=== PATIENT | male | born 1985 | race Caucasian/White ===

== ENCOUNTER 2017-08-20 14:15 | Inpatient (IN) ==
[2017-08-20 15:46] LABS: Basophils % 0.3 % (0.0-0.8); Eosinophils # 0.1 10*3/uL (0.0-0.87); Eosinophils % 0.5 % (0.00-10.9); Hematocrit 44.2 VOL% (42.0-52.0); Hemoglobin 14.6 GM/DL (14.0-18.0); Immature Granulocytes % 0.7 %; Immature Granulocytes Absolute 0.07 #; Lymphocytes # 1.9 10*3/uL (1.4-4.0); Lymphocytes % 18.3 % (21.2-54.2); Mean Corpuscular Hemoglobin 30 PG (27-34); Mean Corpuscular Volume 90.4 FL (87-102); Mean Platelet Volume 10.9 FL (9.6-12.0); Monocytes # 0.7 10*3/uL (0.11-0.8); Monocytes % 6.3 % (1.7-12.7); Neutrophils # 7.9 10*3/uL (1.4-7.4); Neutrophils % 73.9 % (38.7-73.9); Platelet Count 227 T/CUMM (130-400); Red Blood Count 4.89 MC/CUMM (3.8-5.5); White Blood Count 10.6 T/CUMM (4-12)
[2017-08-20] MEDS ORDERED: ALBUTEROL/IPRATROPIUM 3 ML NEB RESP TX STA (16:00)
[2017-08-20 16:21] LABS: Albumin 2.8 G/DL (3.4-5.0); Bilirubin,Total 0.4 MG/DL (0.2-1.0); Calcium 8.2 MG/DL (8.5-10.1); Osmolality,Calculated 284.2 MOS/KG (273-304); Potassium 4.1 MMOL/L (3.5-5.1); Total Protein 7.5 G/DL (6.4-8.3)
[2017-08-20 16:22] LABS: Troponin I Only 0.522 NG/ML (0.00-0.045)
[2017-08-20] MEDS ORDERED: NITROGLYCERIN SL 0.4 MG TABLET SL STA (17:13)
[2017-08-20] MEDS ORDERED: ASPIRIN 325 MG TABLET PO STA (17:13)
[2017-08-20] MEDS ORDERED: ENOXAPARIN 30 MG/0.3 ML SYRINGE SUBCUT STA (17:14)
[2017-08-20] MEDS ORDERED: INSULIN REGULAR 100 UNIT/ML SUBCUT STA (17:16)
[2017-08-20] MEDS ORDERED: POTASSIUM CHLORIDE 20 MEQ TABLET PO PRN ×2 (18:08)
[2017-08-20] MEDS ORDERED: GLUCAGON 1 MG VIAL IM PRN ×2 (18:08→18:12)
[2017-08-20] MEDS ORDERED: MORPHINE 4 MG/1 ML VIAL IV PRN (18:08)
[2017-08-20] MEDS ORDERED: ONDANSETRON 4 MG/2 ML VIAL IV PRN (18:08)
[2017-08-20] MEDS ORDERED: MAGNESIUM SULF RIDER 4 GM in PREMIX 1 EACH IV PRN (18:08)
[2017-08-20] MEDS ORDERED: DEXTROSE 50% 25 GM/50 ML VIAL IV PRN ×2 (18:08→18:12)
[2017-08-20] MEDS ORDERED: MAGNESIUM SULF RIDER 2 GM in PREMIX 1 EACH IV PRN (18:08)
[2017-08-20] MEDS ORDERED: ENOXAPARIN 120 MG/0.8 ML SYRINGE SUBCUT ONE (18:09)
[2017-08-20] MEDS ORDERED: DOCUSATE SODIUM 100 MG CAPSULE PO PRN (18:12)
[2017-08-20] MEDS ORDERED: ALBUTEROL/IPRATROPIUM 3 ML NEB RESP TX PRN (18:13)
[2017-08-20] MEDS: ALBUTEROL/IPRATROPIUM 3 ML NEB RESP TX SCH (18:59)
[2017-08-20] MEDS ORDERED: CARVEDILOL 3.125 MG TABLET PO SCH (21:00)
[2017-08-20] MEDS ORDERED: ROSUVASTATIN 20 MG TABLET PO SCH (21:00)
[2017-08-20] MEDS: ACETAMINOPHEN 325 MG TABLET PO PRN (21:44)
[2017-08-20] MEDS: SODIUM CHLORIDE 0.45% 1,000 ML IV SCH (22:12)
[2017-08-20] MEDS: INSULIN REGULAR 100 UNIT/ML SUBCUT SCH (22:12)
[2017-08-20] MEDS: NITROGLYCERIN 2% OINT 1 INCH/GM PACK TOP SCH (22:36)
[2017-08-21] MEDS: ALBUTEROL/IPRATROPIUM 3 ML NEB RESP TX SCH ×4 (00:18→19:08)
[2017-08-21 01:18] LABS: Basophils % 0.3 % (0.0-0.8); Eosinophils # 0.2 10*3/uL (0.0-0.87); Eosinophils % 2.4 % (0.00-10.9); Hematocrit 42.8 VOL% (42.0-52.0); Hemoglobin 14.5 GM/DL (14.0-18.0); Immature Granulocytes % 0.8 %; Immature Granulocytes Absolute 0.08 #; Lymphocytes # 2.6 10*3/uL (1.4-4.0); Lymphocytes % 26.8 % (21.2-54.2); Mean Corpuscular HGB Conc 33.9 GM/DL (32-36); Mean Corpuscular Hemoglobin 31 PG (27-34); Mean Corpuscular Volume 91.3 FL (87-102); Mean Platelet Volume 11.1 FL (9.6-12.0); Monocytes # 0.6 10*3/uL (0.11-0.8); Monocytes % 6.4 % (1.7-12.7); Neutrophils # 6.2 10*3/uL (1.4-7.4); Neutrophils % 63.3 % (38.7-73.9); Platelet Count 239 T/CUMM (130-400); Red Blood Count 4.69 MC/CUMM (3.8-5.5); Red Cell Distribution Width 15.1 % (9.3-17.3); White Blood Count 9.8 T/CUMM (4-12)
[2017-08-21 01:41] LABS: Osmolality,Calculated 291.8 MOS/KG (273-304); Potassium 4.2 MMOL/L (3.5-5.1)
[2017-08-21 01:45] LABS: Risk Ratio 14.4; Thyroid Stimulating Hormone 1.47 uIU/ml (0.358-3.74); VLDL CHOLESTEROL 463.4 MG/DL
[2017-08-21] MEDS: NITROGLYCERIN 2% OINT 1 INCH/GM PACK TOP SCH ×4 (04:27→21:38)
[2017-08-21] MEDS: SODIUM CHLORIDE 0.45% 1,000 ML IV SCH (05:08)
[2017-08-21] MEDS: ENOXAPARIN 150 MG/ML SYRINGE SUBCUT SCH ×2 (05:29→17:27)
[2017-08-21] MEDS: metFORMIN 500 MG TABLET PO SCH ×2 (09:01→16:37)
[2017-08-21] MEDS: INSULIN REGULAR 100 UNIT/ML SUBCUT SCH ×4 (09:01→21:38)
[2017-08-21] MEDS ORDERED: FUROSEMIDE 40 MG/4 ML VIAL ONE (09:44)
[2017-08-21] MEDS: AZITHROMYCIN 250 MG TABLET PO SCH (09:52)
[2017-08-21] MEDS: ASPIRIN EC 325 MG TABLET PO SCH (09:52)
[2017-08-21] MEDS: LISINOPRIL 5 MG TABLET PO SCH (09:52)
[2017-08-21] MEDS: PANTOPRAZOLE 40 MG TABLET PO SCH (09:52)
[2017-08-21] MEDS: CARVEDILOL 12.5 MG TABLET PO SCH ×2 (09:52→21:39)
[2017-08-21 13:39] LABS: Barbiturates Screen,Urine Negative (Negative); Benzodiazepines Screen,Urine Negative (Negative); Cannabinoid Screen,Urine Negative (Negative); Opiate Screen,Urine Negative (Negative); Phencyclidine Screen,Urine Negative (Negative)
[2017-08-21] MEDS: ACETAMINOPHEN 325 MG TABLET PO PRN (16:40)
[2017-08-21] MEDS ORDERED: CLOPIDOGREL 300 MG TABLET PO ONE (16:43)
[2017-08-21] MEDS: CLOPIDOGREL 75 MG TABLET PO SCH (17:26)
[2017-08-21] MEDS: BENZONATATE 100 MG CAPSULE PO PRN ×2 (17:45→21:39)
[2017-08-21] MEDS: FUROSEMIDE 40 MG/4 ML VIAL IV SCH (21:38)
[2017-08-21] MEDS: ROSUVASTATIN 20 MG TABLET PO SCH (21:39)
[2017-08-21] MEDS ORDERED: NITROGLYCERIN 2% OINT 1 INCH/GM PACK TOP SCH (22:30)
[2017-08-22] MEDS: ALBUTEROL/IPRATROPIUM 3 ML NEB RESP TX SCH ×4 (00:02→20:44)
[2017-08-22] MEDS: NITROGLYCERIN 2% OINT 1 INCH/GM PACK TOP SCH ×3 (04:27→16:50)
[2017-08-22] MEDS: ENOXAPARIN 150 MG/ML SYRINGE SUBCUT SCH (06:28)
[2017-08-22] MEDS ORDERED: FUROSEMIDE 40 MG/4 ML VIAL IV SCH (09:00)
[2017-08-22 09:43] LABS: Calcium 6.8 MG/DL (8.5-10.1); Osmolality,Calculated 275.7 MOS/KG (273-304)
[2017-08-22] MEDS: CARVEDILOL 12.5 MG TABLET PO SCH ×2 (09:58→21:50)
[2017-08-22] MEDS: CLOPIDOGREL 75 MG TABLET PO SCH (09:58)
[2017-08-22] MEDS: OMEGA 3 ACID ETHYL ESTERS 1 GM CAPSULE PO SCH (09:58)
[2017-08-22] MEDS: AZITHROMYCIN 250 MG TABLET PO SCH (09:58)
[2017-08-22] MEDS: metFORMIN 500 MG TABLET PO SCH ×2 (09:58→17:42)
[2017-08-22] MEDS: PANTOPRAZOLE 40 MG TABLET PO SCH (09:58)
[2017-08-22] MEDS: INSULIN REGULAR 100 UNIT/ML SUBCUT SCH ×4 (09:59→21:50)
[2017-08-22] MEDS: INSULIN GLARGINE 100 UNIT/ML SUBCUT SCH (09:59)
[2017-08-22] MEDS: LISINOPRIL 5 MG TABLET PO SCH (09:59)
[2017-08-22] MEDS: ASPIRIN EC 325 MG TABLET PO SCH (09:59)
[2017-08-22] MEDS: FUROSEMIDE 40 MG/4 ML VIAL IV SCH ×3 (10:01→20:14)
[2017-08-22] MEDS ORDERED: ADENOSINE 6 MG/2 ML VIAL ONE ×2 (10:57→11:34)
[2017-08-22] MEDS: ROSUVASTATIN 20 MG TABLET PO SCH (21:49)
[2017-08-22] MEDS: hydrALAZINE 10 MG TABLET PO SCH (21:49)
[2017-08-22] MEDS: BENZONATATE 100 MG CAPSULE PO PRN (21:49)
[2017-08-22] MEDS: SERTRALINE 25 MG TABLET PO SCH (21:50)
[2017-08-23] MEDS: ALBUTEROL/IPRATROPIUM 3 ML NEB RESP TX SCH ×4 (00:23→21:26)
[2017-08-23] MEDS: NITROGLYCERIN 2% OINT 1 INCH/GM PACK TOP SCH ×3 (01:33→10:11)
[2017-08-23 06:59] LABS: Calcium 6.3 MG/DL (8.5-10.1); Potassium 4.1 MMOL/L (3.5-5.1)
[2017-08-23] MEDS: ASPIRIN EC 325 MG TABLET PO SCH (10:11)
[2017-08-23] MEDS: AZITHROMYCIN 250 MG TABLET PO SCH (10:11)
[2017-08-23] MEDS: INSULIN GLARGINE 100 UNIT/ML SUBCUT SCH (10:11)
[2017-08-23] MEDS: INSULIN REGULAR 100 UNIT/ML SUBCUT SCH ×4 (10:11→20:28)
[2017-08-23] MEDS: OMEGA 3 ACID ETHYL ESTERS 1 GM CAPSULE PO SCH (10:12)
[2017-08-23] MEDS: metFORMIN 500 MG TABLET PO SCH ×2 (10:12→16:46)
[2017-08-23] MEDS: hydrALAZINE 10 MG TABLET PO SCH ×3 (10:12→20:29)
[2017-08-23] MEDS: CARVEDILOL 12.5 MG TABLET PO SCH (10:13)
[2017-08-23] MEDS: PANTOPRAZOLE 40 MG TABLET PO SCH (10:13)
[2017-08-23] MEDS: CLOPIDOGREL 75 MG TABLET PO SCH (10:13)
[2017-08-23] MEDS: LISINOPRIL 5 MG TABLET PO SCH (10:13)
[2017-08-23] MEDS: FUROSEMIDE 40 MG/4 ML VIAL IV SCH ×2 (10:13→20:28)
[2017-08-23] MEDS: ENOXAPARIN 40 MG/0.4 ML SYRINGE SUBCUT SCH (10:13)
[2017-08-23] MEDS: ISOSORBIDE MONONITRATE 30 MG TABLET PO SCH (10:14)
[2017-08-23] MEDS: ACETAMINOPHEN 325 MG TABLET PO PRN (10:18)
[2017-08-23] MEDS ORDERED: INSULIN GLARGINE 100 UNIT/ML SUBCUT SCH (11:40)
[2017-08-23] MEDS: BENZONATATE 100 MG CAPSULE PO PRN (20:29)
[2017-08-23] MEDS: SERTRALINE 25 MG TABLET PO SCH (20:29)
[2017-08-23] MEDS: ROSUVASTATIN 20 MG TABLET PO SCH (20:29)
[2017-08-23] MEDS: CARVEDILOL 25 MG TABLET PO SCH (20:29)
[2017-08-24] MEDS: ALBUTEROL/IPRATROPIUM 3 ML NEB RESP TX SCH ×4 (02:17→19:44)
[2017-08-24 05:30] LABS: Basophils % 0.4 % (0.0-0.8); Eosinophils # 0.4 10*3/uL (0.0-0.87); Hematocrit 42.7 VOL% (42.0-52.0); Hemoglobin 15.1 GM/DL (14.0-18.0); Immature Granulocytes % 0.8 %; Immature Granulocytes Absolute 0.07 #; Lymphocytes # 2.1 10*3/uL (1.4-4.0); Lymphocytes % 24.8 % (21.2-54.2); Mean Corpuscular HGB Conc 35.4 GM/DL (32-36); Mean Corpuscular Hemoglobin 31 PG (27-34); Monocytes # 0.6 10*3/uL (0.11-0.8); Monocytes % 6.8 % (1.7-12.7); Neutrophils # 5.2 10*3/uL (1.4-7.4); Neutrophils % 62.2 % (38.7-73.9); Platelet Count 270 T/CUMM (130-400); Red Blood Count 4.85 MC/CUMM (3.8-5.5); Red Cell Distribution Width 14.5 % (9.3-17.3); White Blood Count 8.4 T/CUMM (4-12)
[2017-08-24 06:43] LABS: Calcium 7.4 MG/DL (8.5-10.1); Osmolality,Calculated 283.1 MOS/KG (273-304); Potassium 4.3 MMOL/L (3.5-5.1)
[2017-08-24] MEDS: FUROSEMIDE 40 MG/4 ML VIAL IV SCH ×2 (10:40→20:44)
[2017-08-24] MEDS: metFORMIN 500 MG TABLET PO SCH ×2 (10:40→17:45)
[2017-08-24] MEDS: OMEGA 3 ACID ETHYL ESTERS 1 GM CAPSULE PO SCH (10:41)
[2017-08-24] MEDS: CLOPIDOGREL 75 MG TABLET PO SCH (10:41)
[2017-08-24] MEDS: hydrALAZINE 10 MG TABLET PO SCH ×2 (10:41→15:09)
[2017-08-24] MEDS: ASPIRIN EC 325 MG TABLET PO SCH (10:41)
[2017-08-24] MEDS: CARVEDILOL 25 MG TABLET PO SCH ×2 (10:42→20:40)
[2017-08-24] MEDS: LISINOPRIL 5 MG TABLET PO SCH (10:42)
[2017-08-24] MEDS: ENOXAPARIN 40 MG/0.4 ML SYRINGE SUBCUT SCH (10:42)
[2017-08-24] MEDS: INSULIN REGULAR 100 UNIT/ML SUBCUT SCH ×4 (10:42→21:50)
[2017-08-24] MEDS: AZITHROMYCIN 250 MG TABLET PO SCH (10:42)
[2017-08-24] MEDS: PANTOPRAZOLE 40 MG TABLET PO SCH (10:42)
[2017-08-24] MEDS: ISOSORBIDE MONONITRATE 30 MG TABLET PO SCH (10:43)
[2017-08-24] MEDS ORDERED: INSULIN GLARGINE 100 UNIT/ML SUBCUT SCH (12:13)
[2017-08-24] MEDS ORDERED: MAGNESIUM OXIDE 400 MG TABLET PO ONE (12:16)
[2017-08-24] MEDS: INSULIN LISPRO 100 UNIT/ML SUBCUT SCH (17:44)
[2017-08-24] MEDS: ROSUVASTATIN 20 MG TABLET PO SCH (20:40)
[2017-08-24] MEDS: SERTRALINE 25 MG TABLET PO SCH (20:41)
[2017-08-25] MEDS: ALBUTEROL/IPRATROPIUM 3 ML NEB RESP TX SCH ×3 (00:32→15:23)
[2017-08-25 06:02] LABS: Calcium 7.7 MG/DL (8.5-10.1); Osmolality,Calculated 274.7 MOS/KG (273-304); Potassium 4.1 MMOL/L (3.5-5.1)
[2017-08-25 06:06] LABS: Basophils % 0.3 % (0.0-0.8); Eosinophils # 0.5 10*3/uL (0.0-0.87); Hematocrit 43.9 VOL% (42.0-52.0); Hemoglobin 14.3 GM/DL (14.0-18.0); Immature Granulocytes % 0.8 %; Immature Granulocytes Absolute 0.06 #; Lymphocytes % 25.4 % (21.2-54.2); Mean Corpuscular HGB Conc 32.6 GM/DL (32-36); Mean Corpuscular Hemoglobin 31 PG (27-34); Mean Platelet Volume 10.4 FL (9.6-12.0); Monocytes # 0.5 10*3/uL (0.11-0.8); Monocytes % 6.9 % (1.7-12.7); Neutrophils # 4.8 10*3/uL (1.4-7.4); Neutrophils % 60.6 % (38.7-73.9); Platelet Count 247 T/CUMM (130-400); Red Blood Count 4.67 MC/CUMM (3.8-5.5); Red Cell Distribution Width 14.3 % (9.3-17.3); White Blood Count 7.9 T/CUMM (4-12)
[2017-08-25] MEDS: FUROSEMIDE 40 MG/4 ML VIAL IV SCH (08:57)
[2017-08-25] MEDS: INSULIN REGULAR 100 UNIT/ML SUBCUT SCH ×3 (08:57→17:27)
[2017-08-25] MEDS: INSULIN LISPRO 100 UNIT/ML SUBCUT SCH ×3 (08:58→17:28)
[2017-08-25] MEDS: ENOXAPARIN 40 MG/0.4 ML SYRINGE SUBCUT SCH (08:58)
[2017-08-25] MEDS: ASPIRIN EC 325 MG TABLET PO SCH (08:59)
[2017-08-25] MEDS: CARVEDILOL 25 MG TABLET PO SCH (08:59)
[2017-08-25] MEDS: CLOPIDOGREL 75 MG TABLET PO SCH (08:59)
[2017-08-25] MEDS: metFORMIN 500 MG TABLET PO SCH ×2 (08:59→17:28)
[2017-08-25] MEDS: PANTOPRAZOLE 40 MG TABLET PO SCH (08:59)
[2017-08-25] MEDS: LISINOPRIL 5 MG TABLET PO SCH (08:59)
[2017-08-25] MEDS: OMEGA 3 ACID ETHYL ESTERS 1 GM CAPSULE PO SCH (08:59)
[2017-08-25] MEDS: AZITHROMYCIN 250 MG TABLET PO SCH (08:59)
[2017-08-25] MEDS ORDERED: MAGNESIUM SULF RIDER 2 GM in PREMIX 1 EACH IV ONE (12:28)
[2017-08-25] MEDS ORDERED: predniSONE 20 MG TABLET PO SCH (12:30)
[2017-08-25 16:55] VITALS: BP 124/72
== END 2017-08-25 19:29 | disposition home or self-care (01) | DRG 144 ==
LOC: N.ED 14:15 → SUATTDRO 17:26 → N.EDINP 17:26 → N.TELEN 19:15
PROVIDERS: ADMIT Internal Medicine; ATTEND Internal Medicine

== ENCOUNTER 2018-08-02 17:53 | Inpatient (IN) ==
[2018-08-02] MEDS ORDERED: FUROSEMIDE 40 MG/4 ML VIAL IV STA (18:12)
[2018-08-02] MEDS ORDERED: ASPIRIN 325 MG TABLET PO STA (18:12)
[2018-08-02] MEDS ORDERED: DILTIAZEM 50 MG/10 ML VIAL IV STA (18:12)
[2018-08-02 18:58] LABS: Basophils % 0.2 % (0.0-0.8); Eosinophils # 0.4 10*3/uL (0.0-0.87); Hematocrit 46.1 VOL% (42.0-52.0); Hemoglobin 14.2 GM/DL (14.0-18.0); Immature Granulocytes % 0.3 %; Immature Granulocytes Absolute 0.03 #; Lymphocytes % 19.2 % (21.2-54.2); Mean Corpuscular HGB Conc 30.8 GM/DL (32-36); Mean Corpuscular Hemoglobin 28 PG (27-34); Mean Corpuscular Volume 91.5 FL (87-102); Mean Platelet Volume 10.2 FL (9.6-12.0); Monocytes # 0.5 10*3/uL (0.11-0.8); Monocytes % 5.3 % (1.7-12.7); Neutrophils # 7.2 10*3/uL (1.4-7.4); Platelet Count 384 T/CUMM (130-400); Red Blood Count 5.04 MC/CUMM (3.8-5.5); Red Cell Distribution Width 14.4 % (9.3-17.3); White Blood Count 10.2 T/CUMM (4-12)
[2018-08-02 19:06] LABS: INR 0.9; PT Patient Result 10.3 SECS
[2018-08-02 19:11] LABS: Alanine Aminotransferase 35 U/L (16-61); Alkaline Phosphatase 86 U/L (45-117); Aspartate Amino Transferase 17 U/L (0-37); Bilirubin,Total < 0.39 MG/DL (0.2-1.0); Blood Urea Nitrogen 17 MG/DL (7-18); Calcium 7.8 MG/DL (8.5-10.1); Glucose 303 MG/DL (74-106); Osmolality,Calculated 285.8 MOS/KG (273-304); Sodium 137 MMOL/L (136-145); Total Protein 7.5 G/DL (6.4-8.3); Troponin I 0.045 NG/ML (0.00-0.045)
[2018-08-02] MEDS ORDERED: DEXTROSE 50% 25 GM/50 ML SYRINGE IV PRN (20:08)
[2018-08-02] MEDS ORDERED: GLUCAGON 1 MG VIAL IM PRN (20:08)
[2018-08-02] MEDS ORDERED: ACETAMINOPHEN 325 MG TABLET PO PRN (20:08)
[2018-08-02 20:28] LABS: Barbiturates Screen,Urine Negative (Negative); Benzodiazepines Screen,Urine Negative (Negative); Cannabinoid Screen,Urine Negative (Negative); Opiate Screen,Urine Negative (Negative); Phencyclidine Screen,Urine Negative (Negative)
[2018-08-02] MEDS: INSULIN REGULAR 100 UNIT/ML SUBCUT SCH (22:23)
[2018-08-02] MEDS: ENOXAPARIN 40 MG/0.4 ML SYRINGE SUBCUT SCH (22:23)
[2018-08-03 05:22] LABS: Basophils % 0.3 % (0.0-0.8); Eosinophils # 0.4 10*3/uL (0.0-0.87); Eosinophils % 3.5 % (0.00-10.9); Hemoglobin 13.9 GM/DL (14.0-18.0); Immature Granulocytes % 0.5 %; Immature Granulocytes Absolute 0.05 #; Lymphocytes # 2.4 10*3/uL (1.4-4.0); Lymphocytes % 23.4 % (21.2-54.2); Mean Corpuscular HGB Conc 30.9 GM/DL (32-36); Mean Corpuscular Hemoglobin 29 PG (27-34); Mean Corpuscular Volume 92.4 FL (87-102); Mean Platelet Volume 9.9 FL (9.6-12.0); Monocytes # 0.6 10*3/uL (0.11-0.8); Monocytes % 6.3 % (1.7-12.7); Neutrophils # 6.7 10*3/uL (1.4-7.4); Platelet Count 335 T/CUMM (130-400); Red Blood Count 4.87 MC/CUMM (3.8-5.5); White Blood Count 10.1 T/CUMM (4-12)
[2018-08-03 05:33] LABS: Calcium 7.6 MG/DL (8.5-10.1); Osmolality,Calculated 284.7 MOS/KG (273-304); Potassium 3.9 MMOL/L (3.5-5.1)
[2018-08-03] MEDS: INSULIN REGULAR 100 UNIT/ML SUBCUT SCH ×4 (09:00→21:04)
[2018-08-03] MEDS: FUROSEMIDE 40 MG/4 ML VIAL IV SCH ×2 (09:01→16:27)
[2018-08-03] MEDS ORDERED: CAPTOPRIL 6.25 MG TABLET PO SCH (13:43)
[2018-08-03] MEDS ORDERED: SERTRALINE 25 MG TABLET PO ONE (13:44)
[2018-08-03] MEDS: CARVEDILOL 3.125 MG TABLET PO SCH ×2 (15:02→21:03)
[2018-08-03] MEDS: RAMIPRIL 2.5 MG CAPSULE PO SCH (15:02)
[2018-08-03] MEDS: ASPIRIN CHEW 81 MG TABLET PO SCH (15:02)
[2018-08-03] MEDS ORDERED: LORazepam 2 MG/1 ML VIAL IV ONE (15:44)
[2018-08-03] MEDS ORDERED: SERTRALINE 25 MG TABLET PO SCH (21:00)
[2018-08-03] MEDS: ENOXAPARIN 40 MG/0.4 ML SYRINGE SUBCUT SCH (21:03)
[2018-08-03] MEDS: glipiZIDE 10 MG TABLET PO SCH (21:03)
[2018-08-04] MEDS: CARVEDILOL 3.125 MG TABLET PO SCH ×3 (01:49→15:20)
[2018-08-04 05:22] LABS: Basophils % 0.3 % (0.0-0.8); Eosinophils # 0.3 10*3/uL (0.0-0.87); Eosinophils % 3.4 % (0.00-10.9); Hematocrit 45.8 VOL% (42.0-52.0); Hemoglobin 14.2 GM/DL (14.0-18.0); Immature Granulocytes % 0.4 %; Immature Granulocytes Absolute 0.04 #; Lymphocytes # 2.1 10*3/uL (1.4-4.0); Lymphocytes % 21.2 % (21.2-54.2); Mean Corpuscular Hemoglobin 28 PG (27-34); Mean Corpuscular Volume 90.7 FL (87-102); Mean Platelet Volume 9.7 FL (9.6-12.0); Monocytes # 0.7 10*3/uL (0.11-0.8); Monocytes % 7.6 % (1.7-12.7); Neutrophils # 6.5 10*3/uL (1.4-7.4); Neutrophils % 67.1 % (38.7-73.9); Platelet Count 317 T/CUMM (130-400); Red Blood Count 5.05 MC/CUMM (3.8-5.5); Red Cell Distribution Width 13.8 % (9.3-17.3); White Blood Count 9.7 T/CUMM (4-12)
[2018-08-04 05:40] LABS: Calcium 7.7 MG/DL (8.5-10.1); Osmolality,Calculated 282.5 MOS/KG (273-304); Potassium 3.7 MMOL/L (3.5-5.1)
[2018-08-04 08:24] VITALS: BP 112/62
[2018-08-04] MEDS: INSULIN REGULAR 100 UNIT/ML SUBCUT SCH ×3 (08:50→16:58)
[2018-08-04] MEDS ORDERED: metFORMIN 500 MG TABLET PO SCH (09:00)
[2018-08-04] MEDS ORDERED: GLUCAGON 1 MG VIAL IM PRN (13:32)
[2018-08-04] MEDS ORDERED: DEXTROSE 50% 25 GM/50 ML VIAL IV PRN (13:32)
[2018-08-04] MEDS: glipiZIDE 10 MG TABLET PO SCH (15:16)
[2018-08-04] MEDS: RAMIPRIL 2.5 MG CAPSULE PO SCH (15:18)
[2018-08-04] MEDS: ASPIRIN CHEW 81 MG TABLET PO SCH (15:19)
[2018-08-04] MEDS: FUROSEMIDE 40 MG/4 ML VIAL IV SCH (15:19)
[2018-08-04] MEDS ORDERED: POTASSIUM CHLORIDE 20 MEQ TABLET PO SCH (15:30)
[2018-08-04] MEDS ORDERED: FUROSEMIDE 40 MG TABLET PO SCH (16:00)
[2018-08-04] MEDS ORDERED: CARVEDILOL 6.25 MG TABLET PO SCH (21:00)
[2018-08-05] MEDS ORDERED: ASPIRIN EC 81 MG TABLET PO SCH (09:00)
[2018-08-05] MEDS ORDERED: REGADENOSON 0.4 MG/5 ML SYRINGE IV ONE (12:51)
== END 2018-08-04 18:15 | disposition home or self-care (01) | DRG 281 ==
LOC: N.ED 17:53 → N.EDINP 20:08 → SUATTDRO 20:08 → N.TELEN 20:40
PROVIDERS: ADMIT Internal Medicine Geriatric Medicine; ATTEND Emergency Medicine

== ENCOUNTER 2019-01-03 17:15 | Inpatient (IN) ==
[2019-01-03] MEDS ORDERED: ONDANSETRON 4 MG/2 ML VIAL IV STA (17:45)
[2019-01-03] MEDS ORDERED: FUROSEMIDE 100 MG/10 ML VIAL IV STA (17:45)
[2019-01-03] MEDS ORDERED: ALBUTEROL NEB SOLN 5 MG/ML 20 ML/BOTTLE RESP TX SCH (18:00)
[2019-01-03 18:12] LABS: Basophils % 0.3 % (0.0-0.8); Eosinophils # 0.4 10*3/uL (0.0-0.87); Eosinophils % 3.6 % (0.00-10.9); Hematocrit 44.1 VOL% (42.0-52.0); Hemoglobin 13.7 GM/DL (14.0-18.0); Immature Granulocytes % 0.5 %; Immature Granulocytes Absolute 0.05 #; Lymphocytes # 1.5 10*3/uL (1.4-4.0); Mean Corpuscular HGB Conc 31.1 GM/DL (32-36); Monocytes % 6.4 % (1.7-12.7); Neutrophils % 74.2 % (38.7-73.9); Platelet Count 254 T/CUMM (130-400); Red Cell Distribution Width 14.9 % (9.3-17.3); White Blood Count 10.2 T/CUMM (4-12)
[2019-01-03 18:23] LABS: Alanine Aminotransferase 31 U/L (16-61); Alkaline Phosphatase 85 U/L (45-117); Aspartate Amino Transferase 20 U/L (0-37); Blood Urea Nitrogen 12 MG/DL (7-18); Calcium 8.9 MG/DL (8.5-10.1); Glucose 161 MG/DL (74-106); Osmolality,Calculated 283.3 MOS/KG (273-304); Total Protein 7.2 G/DL (6.4-8.3); Troponin I 0.035 NG/ML (0.00-0.045)
[2019-01-03 18:28] LABS: PT Patient Result 10.7 SECS (9.6-12.2); Partial Thromboplastin Time 24.5 SECS (20.8-36.0)
[2019-01-03] MEDS ORDERED: GLUCAGON 1 MG VIAL IM PRN (19:28)
[2019-01-03] MEDS ORDERED: DEXTROSE 50% 25 GM/50 ML VIAL IV PRN (19:28)
[2019-01-03] MEDS ORDERED: ONDANSETRON 4 MG/2 ML VIAL IV PRN (19:28)
[2019-01-03] MEDS ORDERED: DOCUSATE SODIUM 100 MG CAPSULE PO PRN (19:28)
[2019-01-03] MEDS ORDERED: POTASSIUM CHLORIDE 20 MEQ TABLET PO PRN (19:39)
[2019-01-03] MEDS: FUROSEMIDE 40 MG/4 ML VIAL IV SCH ×2 (22:08→22:58)
[2019-01-03] MEDS: ENOXAPARIN 40 MG/0.4 ML SYRINGE SUBCUT SCH ×2 (22:08→22:58)
[2019-01-03] MEDS: INSULIN LISPRO 100 UNIT/ML SUBCUT SCH (22:09)
[2019-01-03 22:58] LABS: Apearance,Urine CLEAR (Clear); Bacteria,Urine Occasional /HPF (Few); Bilirubin,Urine Negative (Negative); Blood, Urine Negative (Negative); Glucose,Urine (UA) Negative (Negative); Hyaline Casts,Urine 28 /LPF (0-3); Ketones,Urine Negative (Negative); Mucus,Urine Occasional /LPF (Occasional); Nitrite,Urine Negative (Negative); Protein,Urine Negative; RBC,Urine 1 /HPF (0-4); Urine Color Straw (Yellow); Urine Specific Gravity 1.006 (1.001-1.035); Urine Urobilinogen < 2.0 EU/DL (0.2-1.0); WBC,Urine <1 /HPF (0-6)
[2019-01-03] MEDS: CARVEDILOL 3.125 MG TABLET PO SCH (22:58)
[2019-01-03] MEDS: LISINOPRIL 10 MG TABLET PO SCH (22:58)
[2019-01-04] MEDS: ACETAMINOPHEN 325 MG TABLET PO PRN ×2 (03:22→12:31)
[2019-01-04 04:42] LABS: Basophils % 0.3 % (0.0-0.8); Eosinophils # 0.4 10*3/uL (0.0-0.87); Eosinophils % 3.1 % (0.00-10.9); Hematocrit 43.9 VOL% (42.0-52.0); Hemoglobin 13.6 GM/DL (14.0-18.0); Immature Granulocytes % 0.4 %; Immature Granulocytes Absolute 0.05 #; Lymphocytes # 1.7 10*3/uL (1.4-4.0); Lymphocytes % 13.4 % (21.2-54.2); Mean Corpuscular Volume 91.1 FL (87-102); Monocytes % 5.9 % (1.7-12.7); Neutrophils % 76.9 % (38.7-73.9); Platelet Count 271 T/CUMM (130-400); Red Blood Count 4.82 MC/CUMM (3.8-5.5); Red Cell Distribution Width 14.9 % (9.3-17.3); White Blood Count 12.7 T/CUMM (4-12)
[2019-01-04 05:07] LABS: Calcium 8.1 MG/DL (8.5-10.1); Osmolality,Calculated 276.8 MOS/KG (273-304)
[2019-01-04] MEDS ORDERED: glipiZIDE 5 MG TABLET PO SCH (07:30)
[2019-01-04] MEDS: INSULIN LISPRO 100 UNIT/ML SUBCUT SCH ×3 (08:06→16:21)
[2019-01-04] MEDS ORDERED: PANTOPRAZOLE 40 MG TABLET PO SCH (09:00)
[2019-01-04] MEDS: CARVEDILOL 3.125 MG TABLET PO SCH ×2 (09:04→16:52)
[2019-01-04] MEDS: LISINOPRIL 10 MG TABLET PO SCH (09:04)
[2019-01-04] MEDS: FUROSEMIDE 40 MG/4 ML VIAL IV SCH ×3 (09:10→16:21)
[2019-01-04] MEDS ORDERED: MAGNESIUM SULF RIDER 2 GM in PREMIX 1 EACH IV ONE (11:32)
[2019-01-04] MEDS ORDERED: ASPIRIN CHEW 81 MG TABLET PO ONE (14:25)
[2019-01-04] MEDS ORDERED: MAGNESIUM CHLORIDE 64 MG TABLET PO SCH (14:30)
[2019-01-04 16:33] VITALS: BP 104/67
[2019-01-05] MEDS ORDERED: ASPIRIN CHEW 81 MG TABLET PO SCH (09:00)
== END 2019-01-04 17:07 | disposition home or self-care (01) | DRG 293 ==
LOC: N.ED 17:15 → N.EDINP 19:28 → N.TELES 20:58
PROVIDERS: ADMIT Internal Medicine; ATTEND Internal Medicine

== ENCOUNTER 2019-04-22 17:40 | Inpatient (IN) ==
[2019-04-22 18:30] LABS: Basophils # 0.1 10*3/uL (0.0-0.2); Basophils % 0.4 % (0.0-0.8); Eosinophils # 0.1 10*3/uL (0.0-0.87); Eosinophils % 0.3 % (0.00-10.9); Hematocrit 46.7 VOL% (42.0-52.0); Hemoglobin 13.8 GM/DL (14.0-18.0); Immature Granulocytes % 1.5 %; Immature Granulocytes Absolute 0.24 #; Lymphocytes # 1.6 10*3/uL (1.4-4.0); Lymphocytes % 10.2 % (21.2-54.2); Mean Corpuscular HGB Conc 29.6 GM/DL (32-36); Mean Corpuscular Volume 88.6 FL (87-102); Mean Platelet Volume 10.3 FL (9.6-12.0); Monocytes % 9.4 % (1.7-12.7); NRBC # 0.04 10*3/uL; Neutrophils % 78.2 % (38.7-73.9); Platelet Count 227 T/CUMM (130-400); Red Blood Count 5.27 MC/CUMM (3.8-5.5); Red Cell Distribution Width 18.7 % (9.3-17.3)
[2019-04-22 18:30] LABS: ABG Base Excess -5.5 MMOL/L (-2.5-2.5); ABG HCO3 19.9 MMOL/L (20-26); ABG Oxygen Saturation 93.3 % (95-100); ABG PCO2 61.1 MM HG (35-48); ABG PO2 89.2 MM HG (80-95); ABG TCO2 21.6 MMOL/L (23-27)
[2019-04-22 18:43] LABS: INR 2.6; Partial Thromboplastin Time 27.2 SECS (20.8-36.0)
[2019-04-22 18:44] LABS: ABG PH 7.204 (7.35-7.45)
[2019-04-22 18:44] LABS: PT Patient Result 28.5 SECS (9.6-12.2)
[2019-04-22] MEDS ORDERED: FUROSEMIDE 100 MG/10 ML VIAL IV STA (19:01)
[2019-04-22] MEDS ORDERED: LEVOFLOXACIN INJ 750 MG in PREMIX 1 EACH IV STA (19:01)
[2019-04-22] MEDS ORDERED: LOPERAMIDE 2 MG PO SCH (19:30)
[2019-04-22] MEDS ORDERED: carvediloL 3.125 MG TABLET PO SCH (21:00)
[2019-04-22] MEDS ORDERED: ENOXAPARIN 80 MG/0.8 ML SYRINGE SUBCUT STA (21:06)
[2019-04-22] MEDS ORDERED: ASPIRIN 325 MG TABLET PO STA (21:09)
[2019-04-22 21:13] LABS: Albumin 2.9 G/DL (3.4-5.0); Bilirubin,Total 1.9 MG/DL (0.2-1.0); Calcium 7.5 MG/DL (8.5-10.1); Osmolality,Calculated 277.1 MOS/KG (273-304); Total Protein 6.9 G/DL (6.4-8.3)
[2019-04-22] MEDS ORDERED: MORPHINE 4 MG/1 ML VIAL IV ONE (22:00)
[2019-04-22] MEDS ORDERED: ACETAMINOPHEN 325 MG TABLET PO PRN (22:04)
[2019-04-22] MEDS ORDERED: ALBUTEROL 2.5 MG/3 ML NEB RESP TX PRN (22:04)
[2019-04-22] MEDS ORDERED: DEXTROSE 50% 25 GM/50 ML VIAL IV PRN (22:04)
[2019-04-22] MEDS ORDERED: GLUCAGON 1 MG VIAL IM PRN (22:04)
[2019-04-22] MEDS: INSULIN REGULAR 100 UNIT/ML SUBCUT SCH (22:56)
[2019-04-22] MEDS: carvediloL 3.125 MG TABLET PO SCH (23:44)
[2019-04-22] MEDS ORDERED: NITROGLYCERIN SL 0.4 MG TABLET SL PRN (23:45)
[2019-04-23 00:09] LABS: Apearance,Urine CLEAR (Clear); Bacteria,Urine Occasional /HPF (Few); Bilirubin,Urine Negative (Negative); Blood, Urine Negative (Negative); Glucose,Urine (UA) Negative (Negative); Hyaline Casts,Urine 7 /LPF (0-3); Ketones,Urine Negative (Negative); Mucus,Urine Occasional /LPF (Occasional); Nitrite,Urine Negative (Negative); Protein,Urine Negative; RBC,Urine 4 /HPF (0-4); Squamous Epithelial Cell,Urine Occasional /HPF (0-10); Urine Color Amber (Yellow); Urine Specific Gravity 1.014 (1.001-1.035); WBC,Urine 4 /HPF (0-6)
[2019-04-23] MEDS: SODIUM CHLORIDE 0.9% 1,000 ML IV SCH ×2 (01:07→09:00)
[2019-04-23 03:12] LABS: Barbiturates Screen,Urine Negative (Negative); Benzodiazepines Screen,Urine Negative (Negative); Cannabinoid Screen,Urine Negative (Negative); Opiate Screen,Urine Negative (Negative); Phencyclidine Screen,Urine Negative (Negative)
[2019-04-23 03:18] LABS: Basophils # 0.1 10*3/uL (0.0-0.2); Basophils % 0.4 % (0.0-0.8); Eosinophils # 0.1 10*3/uL (0.0-0.87); Eosinophils % 0.4 % (0.00-10.9); Hemoglobin 13.3 GM/DL (14.0-18.0); Immature Granulocytes % 1.8 %; Immature Granulocytes Absolute 0.28 #; Lymphocytes # 1.2 10*3/uL (1.4-4.0); Lymphocytes % 7.9 % (21.2-54.2); Mean Corpuscular Volume 87.9 FL (87-102); Mean Platelet Volume 10.9 FL (9.6-12.0); Monocytes % 8.3 % (1.7-12.7); NRBC # 0.07 10*3/uL; Neutrophils % 81.2 % (38.7-73.9); Platelet Count 230 T/CUMM (130-400); Red Blood Count 5.04 MC/CUMM (3.8-5.5); Red Cell Distribution Width 18.5 % (9.3-17.3); White Blood Count 15.7 T/CUMM (4-12)
[2019-04-23 03:29] LABS: Hematocrit 44.3 VOL% (42.0-52.0)
[2019-04-23 03:35] LABS: Bilirubin,Direct 1.15 MG/DL (0.0-0.20); Bilirubin,Indirect 1.2 MG/DL (0.0-1.0); Bilirubin,Total 2.3 MG/DL (0.2-1.0); Calcium 7.5 MG/DL (8.5-10.1); Osmolality,Calculated 284.7 MOS/KG (273-304); Risk Ratio 9.17; Thyroid Stimulating Hormone 1.52 uIU/ml (0.358-3.74); Total Protein 7.3 G/DL (6.4-8.3); VLDL CHOLESTEROL 28.6 MG/DL
[2019-04-23 04:44] LABS: Allen Test Positive; Pt O2 Delivery Device Room Air
[2019-04-23 04:45] LABS: ABG Base Excess -3.5 MMOL/L (-2.5-2.5); ABG HCO3 21.1 MMOL/L (20-26); ABG Oxygen Saturation 78.9 % (95-100); ABG PCO2 61.9 MM HG (35-48); ABG PH 7.228 (7.35-7.45); ABG PO2 54.4 MM HG (80-95); ABG TCO2 23.1 MMOL/L (23-27)
[2019-04-23] MEDS: MORPHINE 4 MG/1 ML VIAL IV PRN (04:51)
[2019-04-23] MEDS: ONDANSETRON 4 MG/2 ML VIAL IV PRN (04:52)
[2019-04-23] MEDS: INSULIN REGULAR 100 UNIT/ML SUBCUT SCH ×4 (07:39→23:13)
[2019-04-23] MEDS: glipiZIDE 5 MG TABLET PO SCH (08:12)
[2019-04-23] MEDS: ASPIRIN EC 81 MG TABLET PO SCH (08:12)
[2019-04-23] MEDS: carvediloL 3.125 MG TABLET PO SCH ×2 (08:12→16:30)
[2019-04-23] MEDS ORDERED: DEXTROSE 10% 250 ML BAG IV PRN (08:34)
[2019-04-23] MEDS ORDERED: glipiZIDE 5 MG TABLET PO SCH (09:00)
[2019-04-23] MEDS ORDERED: POTASSIUM CHLORIDE 10 MEQ TABLET PO SCH ×2 (09:00)
[2019-04-23] MEDS ORDERED: ASPIRIN EC 81 MG TABLET PO SCH (09:00)
[2019-04-23] MEDS ORDERED: ENOXAPARIN 150 MG/ML SYRINGE SUBCUT SCH (09:00)
[2019-04-23] MEDS ORDERED: INFLUENZA VIRUS VACCINE 0.5 ML SYRINGE IM ONE (11:11)
[2019-04-23] MEDS: FUROSEMIDE 40 MG/4 ML VIAL IV SCH (16:30)
[2019-04-23 17:25] LABS: Albumin 3.1 G/DL (3.4-5.0); Bilirubin,Total 1.8 MG/DL (0.2-1.0); Calcium 7.8 MG/DL (8.5-10.1); Osmolality,Calculated 286.7 MOS/KG (273-304); Total Protein 7.6 G/DL (6.4-8.3)
[2019-04-23] MEDS ORDERED: SPIRONOLACTONE 50 MG TABLET PO SCH (21:00)
[2019-04-24 05:20] LABS: Basophils # 0.1 10*3/uL (0.0-0.2); Basophils % 0.3 % (0.0-0.8); Eosinophils # 0.1 10*3/uL (0.0-0.87); Eosinophils % 0.7 % (0.00-10.9); Hematocrit 43.7 VOL% (42.0-52.0); Immature Granulocytes % 1.8 %; Immature Granulocytes Absolute 0.28 #; Lymphocytes # 1.2 10*3/uL (1.4-4.0); Lymphocytes % 7.6 % (21.2-54.2); Mean Corpuscular HGB Conc 29.3 GM/DL (32-36); Mean Corpuscular Volume 90.3 FL (87-102); Mean Platelet Volume 10.2 FL (9.6-12.0); Monocytes % 10.3 % (1.7-12.7); NRBC # 0.09 10*3/uL; Neutrophils % 79.3 % (38.7-73.9); Platelet Count 218 T/CUMM (130-400); Red Blood Count 4.84 MC/CUMM (3.8-5.5); White Blood Count 15.6 T/CUMM (4-12)
[2019-04-24 05:51] LABS: Bilirubin,Total 1.1 MG/DL (0.2-1.0); Calcium 7.9 MG/DL (8.5-10.1); Osmolality,Calculated 285.9 MOS/KG (273-304); Total Protein 7.6 G/DL (6.4-8.3)
[2019-04-24 05:58] LABS: Hemoglobin 12.8 GM/DL (14.0-18.0)
[2019-04-24] MEDS ORDERED: SODIUM POLYSTYRENE SULFATE 15 GM/60 ML BOTTLE PO PRN (07:00)
[2019-04-24] MEDS: INSULIN REGULAR 100 UNIT/ML SUBCUT SCH ×4 (08:06→20:52)
[2019-04-24] MEDS: MORPHINE 4 MG/1 ML VIAL IV PRN ×2 (08:40→20:30)
[2019-04-24] MEDS: ONDANSETRON 4 MG/2 ML VIAL IV PRN ×2 (08:41→20:30)
[2019-04-24] MEDS: glipiZIDE 5 MG TABLET PO SCH (08:41)
[2019-04-24] MEDS: carvediloL 3.125 MG TABLET PO SCH ×2 (08:41→16:02)
[2019-04-24] MEDS: FUROSEMIDE 40 MG/4 ML VIAL IV SCH ×2 (08:41→16:02)
[2019-04-24] MEDS: ASPIRIN EC 81 MG TABLET PO SCH (08:42)
[2019-04-24] MEDS ORDERED: SODIUM POLYSTYRENE SULFATE 15 GM/60 ML BOTTLE PO ONE (15:51)
[2019-04-25 08:02] LABS: Basophils # 0.1 10*3/uL (0.0-0.2); Basophils % 0.3 % (0.0-0.8); Eosinophils # 0.1 10*3/uL (0.0-0.87); Eosinophils % 0.4 % (0.00-10.9); Hematocrit 24.8 VOL% (42.0-52.0); Hemoglobin 7.4 GM/DL (14.0-18.0); Immature Granulocytes Absolute 0.76 #; Lymphocytes # 2.1 10*3/uL (1.4-4.0); Lymphocytes % 13.9 % (21.2-54.2); Mean Corpuscular HGB Conc 29.8 GM/DL (32-36); Mean Corpuscular Volume 88.3 FL (87-102); Mean Platelet Volume 10.5 FL (9.6-12.0); Monocytes % 9.9 % (1.7-12.7); NRBC # 0.76 10*3/uL; Neutrophils % 70.5 % (38.7-73.9); Platelet Count 205 T/CUMM (130-400); Red Blood Count 2.81 MC/CUMM (3.8-5.5); Red Cell Distribution Width 18.1 % (9.3-17.3); White Blood Count 15.3 T/CUMM (4-12)
[2019-04-25] MEDS: glipiZIDE 5 MG TABLET PO SCH (08:13)
[2019-04-25] MEDS: carvediloL 3.125 MG TABLET PO SCH ×2 (08:13→17:14)
[2019-04-25] MEDS: ASPIRIN EC 81 MG TABLET PO SCH (08:13)
[2019-04-25] MEDS: FUROSEMIDE 40 MG/4 ML VIAL IV SCH ×2 (08:13→17:14)
[2019-04-25 08:14] LABS: INR 1.8
[2019-04-25] MEDS: INSULIN REGULAR 100 UNIT/ML SUBCUT SCH ×4 (08:14→20:18)
[2019-04-25] MEDS: ONDANSETRON 4 MG/2 ML VIAL IV PRN ×4 (08:19→22:52)
[2019-04-25 08:38] LABS: Albumin 1.8 G/DL (3.4-5.0); Bilirubin,Total 0.8 MG/DL (0.2-1.0); Calcium 7.1 MG/DL (8.5-10.1); Total Protein 4.9 G/DL (6.4-8.3)
[2019-04-25 10:53] LABS: Band Neutrophils 3 % (0-10); Eosinophils 1 % (0-10); Hypochromasia 3+; Lymphocytes 9 % (20-55); Metamyelocytes 1 %; Microcytosis Slight; Myelocytes 2 %; Nucleated Red Blood Cells 3 (0-5); Segmented Neutrophils 77 % (50-85); Total Cells Counted 100
[2019-04-25 10:54] LABS: Platelet Estimate Normal; Polychromasia Slight; Stomatocytes Few
[2019-04-25 11:28] LABS: Basophils % 0.3 % (0.0-0.8); Eosinophils # 0.1 10*3/uL (0.0-0.87); Eosinophils % 0.4 % (0.00-10.9); Hematocrit 23.2 VOL% (42.0-52.0); Immature Granulocytes % 5.1 %; Lymphocytes # 2.2 10*3/uL (1.4-4.0); Lymphocytes % 13.9 % (21.2-54.2); Mean Corpuscular HGB Conc 30.2 GM/DL (32-36); Mean Corpuscular Volume 87.9 FL (87-102); Mean Platelet Volume 10.6 FL (9.6-12.0); Monocytes % 6.8 % (1.7-12.7); NRBC # 1.14 10*3/uL; Neutrophils % 73.5 % (38.7-73.9); Platelet Count 237 T/CUMM (130-400); Red Blood Count 2.64 MC/CUMM (3.8-5.5); Red Cell Distribution Width 18.1 % (9.3-17.3); White Blood Count 15.7 T/CUMM (4-12)
[2019-04-25 11:57] LABS: Ferritin 126.6 ng/ml (26-388)
[2019-04-25 12:10] LABS: Hypochromasia 3+; Microcytosis 1+
[2019-04-25 12:13] LABS: Polychromasia Slight
[2019-04-25 12:14] LABS: Platelet Estimate Normal
[2019-04-25] MEDS ORDERED: SODIUM CHLORIDE 0.9% 1,000 ML IV PRN (14:23)
[2019-04-25] MEDS ORDERED: FUROSEMIDE 20 MG/2 ML VIAL IV PRN (14:25)
[2019-04-25 14:53] LABS: Hematocrit 21.2 VOL% (42.0-52.0)
[2019-04-25 14:55] LABS: Hemoglobin 6.2 GM/DL (14.0-18.0)
[2019-04-25] MEDS: MORPHINE 4 MG/1 ML VIAL IV PRN ×2 (15:06→20:12)
[2019-04-25] MEDS: PANTOPRAZOLE 40 MG VIAL IV SCH (20:25)
[2019-04-26 07:00] LABS: Basophils # 0.1 10*3/uL (0.0-0.2); Basophils % 0.4 % (0.0-0.8); Eosinophils # 0.2 10*3/uL (0.0-0.87); Eosinophils % 0.9 % (0.00-10.9); Hematocrit 24.5 VOL% (42.0-52.0); Hemoglobin 7.7 GM/DL (14.0-18.0); Immature Granulocytes % 6.5 %; Immature Granulocytes Absolute 1.57 #; Lymphocytes # 3.4 10*3/uL (1.4-4.0); Lymphocytes % 14.2 % (21.2-54.2); Mean Corpuscular HGB Conc 31.4 GM/DL (32-36); Mean Corpuscular Volume 87.5 FL (87-102); Mean Platelet Volume 10.4 FL (9.6-12.0); Monocytes % 8.8 % (1.7-12.7); NRBC # 1.65 10*3/uL; Neutrophils % 69.2 % (38.7-73.9); Platelet Count 216 T/CUMM (130-400); Red Cell Distribution Width 17.4 % (9.3-17.3); White Blood Count 24.3 T/CUMM (4-12)
[2019-04-26 07:10] LABS: INR 1.5; PT Patient Result 16.7 SECS (9.6-12.2)
[2019-04-26 07:14] LABS: Bilirubin,Total 1.1 MG/DL (0.2-1.0); Calcium 7.7 MG/DL (8.5-10.1); Osmolality,Calculated 304.1 MOS/KG (273-304); Total Protein 5.1 G/DL (6.4-8.3)
[2019-04-26] MEDS: INSULIN REGULAR 100 UNIT/ML SUBCUT SCH ×4 (07:50→20:27)
[2019-04-26 08:49] LABS: Band Neutrophils 10 % (0-10); Eosinophils 2 % (0-10); Lymphocytes 15 % (20-55); Metamyelocytes 3 %; Platelet Estimate Normal; Segmented Neutrophils 60 % (50-85); Total Cells Counted 100
[2019-04-26 08:50] LABS: Nucleated Red Blood Cells 13 (0-5)
[2019-04-26 08:51] LABS: Anisocytosis 1+; Atypical Lymphocytes Few; Macrocytosis Slight; Polychromasia 1+
[2019-04-26] MEDS: carvediloL 3.125 MG TABLET PO SCH ×2 (09:11→17:03)
[2019-04-26] MEDS: glipiZIDE 5 MG TABLET PO SCH (09:11)
[2019-04-26] MEDS: FUROSEMIDE 40 MG/4 ML VIAL IV SCH ×2 (09:11→17:02)
[2019-04-26] MEDS: PANTOPRAZOLE 40 MG VIAL IV SCH ×2 (09:13→22:19)
[2019-04-26 15:22] LABS: Hematocrit 23.1 VOL% (42.0-52.0); Hemoglobin 7.1 GM/DL (14.0-18.0)
[2019-04-26] MEDS: ALBUTEROL/IPRATROPIUM 3 ML NEB RESP TX SCH (20:10)
[2019-04-27] MEDS: ALBUTEROL/IPRATROPIUM 3 ML NEB RESP TX SCH ×4 (00:15→19:13)
[2019-04-27 03:24] LABS: Basophils # 0.1 10*3/uL (0.0-0.2); Basophils % 0.3 % (0.0-0.8); Eosinophils # 0.6 10*3/uL (0.0-0.87); Eosinophils % 2.4 % (0.00-10.9); Hemoglobin 6.8 GM/DL (14.0-18.0); Immature Granulocytes % 6.3 %; Immature Granulocytes Absolute 1.43 #; Lymphocytes # 2.8 10*3/uL (1.4-4.0); Lymphocytes % 12.2 % (21.2-54.2); Mean Corpuscular HGB Conc 30.9 GM/DL (32-36); Mean Corpuscular Volume 89.4 FL (87-102); Mean Platelet Volume 10.3 FL (9.6-12.0); Monocytes % 8.7 % (1.7-12.7); NRBC # 1.52 10*3/uL; Neutrophils % 70.1 % (38.7-73.9); Platelet Count 191 T/CUMM (130-400); Red Blood Count 2.46 MC/CUMM (3.8-5.5); Red Cell Distribution Width 17.9 % (9.3-17.3); White Blood Count 22.9 T/CUMM (4-12)
[2019-04-27 03:59] LABS: Band Neutrophils 2 % (0-10); Eosinophils 2 % (0-10); Lymphocytes 11 % (20-55); Nucleated Red Blood Cells 11 (0-5); Segmented Neutrophils 81 % (50-85); Total Cells Counted 100
[2019-04-27 04:00] LABS: Anisocytosis 1+; Hypochromasia 1+; Platelet Estimate Normal; Polychromasia 1+
[2019-04-27 04:06] LABS: Albumin 1.9 G/DL (3.4-5.0); Bilirubin,Total 0.6 MG/DL (0.2-1.0); Calcium 7.5 MG/DL (8.5-10.1); Osmolality,Calculated 300.4 MOS/KG (273-304); Total Protein 4.9 G/DL (6.4-8.3)
[2019-04-27 06:52] LABS: INR 1.4; PT Patient Result 15.3 SECS (9.6-12.2)
[2019-04-27] MEDS: INSULIN REGULAR 100 UNIT/ML SUBCUT SCH ×4 (08:10→21:12)
[2019-04-27] MEDS: PANTOPRAZOLE 40 MG VIAL IV SCH ×2 (08:44→21:12)
[2019-04-27] MEDS: glipiZIDE 5 MG TABLET PO SCH (08:45)
[2019-04-27] MEDS: carvediloL 3.125 MG TABLET PO SCH ×2 (08:45→16:10)
[2019-04-27] MEDS: FUROSEMIDE 40 MG/4 ML VIAL IV SCH ×2 (08:45→16:10)
[2019-04-27] MEDS: ONDANSETRON 4 MG/2 ML VIAL IV PRN (08:52)
[2019-04-27] MEDS: MORPHINE 4 MG/1 ML VIAL IV PRN (13:54)
[2019-04-27 18:01] LABS: Hepatitis B Core IgM Quant < 0.05 Index; Hepatitis B Surface Ag Quant < 0.10 Index; Hepatitis B Surface Ag Result Negative (Negative); Hepatitis C Virus Ab Quant 0.16 Index; Hepatitis C Virus Ab Result Negative (Negative)
[2019-04-27] MEDS ORDERED: SODIUM CHLORIDE 0.9% 1,000 ML IV PRN (19:16)
[2019-04-28] MEDS: ALBUTEROL/IPRATROPIUM 3 ML NEB RESP TX SCH ×4 (01:01→19:53)
[2019-04-28 06:03] LABS: Basophils % 0.1 % (0.0-0.8); Eosinophils # 0.4 10*3/uL (0.0-0.87); Eosinophils % 2.4 % (0.00-10.9); Hematocrit 20.4 VOL% (42.0-52.0); Immature Granulocytes % 3.6 %; Immature Granulocytes Absolute 0.59 #; Lymphocytes # 1.9 10*3/uL (1.4-4.0); Lymphocytes % 11.4 % (21.2-54.2); Mean Corpuscular HGB Conc 30.9 GM/DL (32-36); Mean Corpuscular Volume 88.3 FL (87-102); Mean Platelet Volume 10.6 FL (9.6-12.0); Monocytes % 10.1 % (1.7-12.7); NRBC # 1.12 10*3/uL; Neutrophils % 72.4 % (38.7-73.9); Platelet Count 199 T/CUMM (130-400); Red Blood Count 2.31 MC/CUMM (3.8-5.5); Red Cell Distribution Width 18.4 % (9.3-17.3); White Blood Count 16.5 T/CUMM (4-12)
[2019-04-28 06:06] LABS: Hemoglobin 6.3 GM/DL (14.0-18.0)
[2019-04-28 06:12] LABS: INR 1.2; PT Patient Result 13.1 SECS (9.6-12.2)
[2019-04-28 06:22] LABS: Band Neutrophils 1 % (0-10); Eosinophils 5 % (0-10); Hypochromasia 2+; Lymphocytes 14 % (20-55); Nucleated Red Blood Cells 3 (0-5); Platelet Estimate Adequate; Segmented Neutrophils 75 % (50-85); Total Cells Counted 100
[2019-04-28 06:23] LABS: Macrocytosis Slight; Polychromasia Slight
[2019-04-28] MEDS: ONDANSETRON 4 MG/2 ML VIAL IV PRN (06:27)
[2019-04-28 06:29] LABS: Bilirubin,Total 0.6 MG/DL (0.2-1.0); Calcium 7.6 MG/DL (8.5-10.1); Osmolality,Calculated 285.8 MOS/KG (273-304); Total Protein 5.6 G/DL (6.4-8.3)
[2019-04-28] MEDS ORDERED: SODIUM CHLORIDE 0.9% 1,000 ML IV PRN (07:10)
[2019-04-28] MEDS: INSULIN REGULAR 100 UNIT/ML SUBCUT SCH ×4 (08:47→21:07)
[2019-04-28] MEDS: glipiZIDE 5 MG TABLET PO SCH (09:14)
[2019-04-28] MEDS: FUROSEMIDE 40 MG/4 ML VIAL IV SCH ×2 (09:14→17:13)
[2019-04-28] MEDS: carvediloL 3.125 MG TABLET PO SCH ×2 (09:14→17:13)
[2019-04-28] MEDS: PANTOPRAZOLE 40 MG VIAL IV SCH ×2 (09:15→21:07)
[2019-04-28 17:05] LABS: Hematocrit 24.1 VOL% (42.0-52.0); Hemoglobin 7.6 GM/DL (14.0-18.0)
[2019-04-29] MEDS: ALBUTEROL/IPRATROPIUM 3 ML NEB RESP TX SCH ×4 (00:54→19:33)
[2019-04-29 05:22] LABS: Hemoglobin 7.4 GM/DL (14.0-18.0)
[2019-04-29] MEDS ORDERED: SODIUM CHLORIDE 0.9% 1,000 ML IV SCH (07:00)
[2019-04-29] MEDS: INSULIN REGULAR 100 UNIT/ML SUBCUT SCH ×4 (07:09→21:07)
[2019-04-29] MEDS ORDERED: traMADol 50 MG TABLET PO PRN (07:29)
[2019-04-29] MEDS ORDERED: LACTATED RINGERS 1,000 ML IV SCH (07:30)
[2019-04-29] MEDS ORDERED: ETOMIDATE 20 MG/10 ML VIAL IV ONE (09:00)
[2019-04-29] MEDS ORDERED: LIDOCAINE 2% 5 ML VIAL ONE (09:00)
[2019-04-29] MEDS ORDERED: propofoL 200 MG/20 ML VIAL IV ONE (09:00)
[2019-04-29] MEDS: carvediloL 3.125 MG TABLET PO SCH ×2 (09:57→16:56)
[2019-04-29] MEDS: PANTOPRAZOLE 40 MG TABLET PO SCH (09:57)
[2019-04-29] MEDS: glipiZIDE 5 MG TABLET PO SCH (09:57)
[2019-04-29] MEDS: FUROSEMIDE 40 MG/4 ML VIAL IV SCH ×2 (09:58→16:56)
[2019-04-29] MEDS: METOCLOPRAMIDE 10 MG TABLET PO SCH ×4 (10:02→21:07)
[2019-04-29 17:25] LABS: Hematocrit 23.2 VOL% (42.0-52.0); Hemoglobin 6.9 GM/DL (14.0-18.0)
[2019-04-29] MEDS ORDERED: POLYETHYLENE GLYCOL POWDER 255 GM BOTTLE PO ONE (18:00)
[2019-04-29] MEDS ORDERED: MAGNESIUM CITRATE 300 ML BOTTLE PO ONE (21:00)
[2019-04-30] MEDS: ALBUTEROL/IPRATROPIUM 3 ML NEB RESP TX SCH ×2 (00:04→07:49)
[2019-04-30 05:30] LABS: Hematocrit 24.4 VOL% (42.0-52.0); Hemoglobin 7.3 GM/DL (14.0-18.0)
[2019-04-30] MEDS ORDERED: LACTATED RINGERS 1,000 ML IV SCH (06:30)
[2019-04-30] MEDS: INSULIN REGULAR 100 UNIT/ML SUBCUT SCH (07:46)
[2019-04-30] MEDS ORDERED: PHENYLEPHRINE 1 MG/10 ML SYRINGE IV ONE (10:00)
[2019-04-30] MEDS ORDERED: ETOMIDATE 20 MG/10 ML VIAL IV ONE (10:00)
[2019-04-30] MEDS ORDERED: LIDOCAINE 2% 5 ML VIAL ONE (10:00)
[2019-04-30] MEDS ORDERED: propofoL 200 MG/20 ML VIAL IV ONE (10:00)
[2019-04-30 10:06] VITALS: BP 96/79
[2019-04-30] MEDS: glipiZIDE 5 MG TABLET PO SCH (10:39)
[2019-04-30] MEDS: carvediloL 3.125 MG TABLET PO SCH (10:39)
[2019-04-30] MEDS: FUROSEMIDE 40 MG/4 ML VIAL IV SCH (10:39)
[2019-04-30] MEDS: METOCLOPRAMIDE 10 MG TABLET PO SCH (10:39)
[2019-04-30] MEDS: PANTOPRAZOLE 40 MG TABLET PO SCH (10:40)
== END 2019-04-30 11:29 | disposition home or self-care (01) | DRG 871 ==
LOC: EDUNIT# → EDBD → N.ED 17:40 → N.ICU 20:08 → N.EDINP 21:08 → SUATTDRO 21:08 → N.ICU 21:30 → N.TELEN 04-23 19:50
PROVIDERS: ADMIT Family Medicine; ATTEND Internal Medicine